=== PATIENT | male | born 2000 | race Caucasian/White ===

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

== ENCOUNTER 2018-02-09 15:42 | Emergency (ER) | payer BC, OTHER ==
[2018-02-09] MEDS ORDERED: Sodium Chloride 0.9% 1,000 ML IV ONE (15:48)
[2018-02-09] MEDS ORDERED: Ondansetron 4 MG/2 ML SDV IVPUSH ONE (15:48)
--- NOTE | 2018-02-09 16:03 | EDM.PDOC ---
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 Review of systems: As per history of present illness and below otherwise all systems reviewed and negative. Past medical history: As per history of present illness and as reviewed below otherwise noncontributory. Surgical history: As per history of present illness and as reviewed below otherwise noncontributory. Social history: No reported history of drug or alcohol abuse. Family history: As per history of present illness and as reviewed below otherwise noncontributory. Physical exam: HEENT: Atraumatic, normocephalic, pupils reactive, negative for conjunctival pallor or scleral icterus, mucous membranes dry, throat clear, neck supple, nontender, trachea midline. Lungs: Clear to auscultation, breath sounds equal bilaterally, chest nontender. Heart: S1S2, regular, negative for clicks, rubs, or JVD. Abdomen: Soft, nondistended, nontender. Negative for masses or hepatosplenomegaly. Negative for costovertebral tenderness. Pelvis: Stable nontender. Genitourinary: Deferred. Rectal: Deferred. Extremities: Atraumatic, negative for cords or calf pain. Neurovascular unremarkable. Neuro: Awake, alert, oriented. Cranial nerves II through XII unremarkable. Cerebellum unremarkable. Motor and sensory unremarkable throughout. Exam nonfocal. Diagnostics: CBC CMP amylase lipase UA EKG chest x-ray ABG Therapeutics: Saline 1 L bolus Zofran 4 mg IV Impression: Were 1 vomiting #2 diabetes #3 history of pancreatitis Definitive disposition and diagnosis as appropriate pending reevaluation and review of above. Abdominal Pain Score (Numeric/FACES): 6 - Related Data Allergies Allergy/AdvReac Type Severity Reaction Status Date / Time azithromycin [From Zithromax] Allergy Hives Verified 02/09/18 16:10 Home Meds: Home Meds Insulin Aspart [NovoLOG] unit SQ ASDIRECTED 09/28/17 [History] Insulin Detemir [Levemir] 50 unit SQ DAILY 09/28/17 [History] Past Medical History Endocrine/Metabolic History: Reports: Diabetes, Type I Social & Family History - Family History Cardiac: Reports: CAD, [place] : Reports: Other (See Below) Other Family History: kidney disease - Tobacco Use Smoking Status *Q: Light Tobacco Smoker Years of Tobacco use: 1 Packs/Tins Daily: 0 - Caffeine Use Caffeine Use: Reports: Soda, Tea - Recreational Drug Use Recreational Drug Use: No ED ROS GENERAL - Review of Systems Review Of Systems: ROS reveals no pertinent complaints other than HPI. ED EXAM GENERAL NO PERIP PULSE - Physical Exam Exam: See Below (dictation) Course - Vital Signs Last Recorded V/S: Last Vital Signs Temp 36.7 C 02/09/18 15:54 Pulse 105 H 02/09/18 15:54 Resp 18 02/09/18 15:54 BP 123/78 02/09/18 15:54 Pulse Ox 97 02/09/18 15:54 - Orders/Labs/Meds Orders: Active Orders 24 hr Category Date Time Status EKG 12 Lead [EKG Documentation Completion] [RC] STAT Care 02/09/18 16:01 Active Chest 1V Frontal [CR] Stat Exams 02/09/18 16:01 Taken UA W/MICROSCOPIC [URIN] Stat Lab 02/09/18 16:43 Ordered Labs: Laboratory Tests 02/09/18 02/09/18 02/09/18 Range/Units 16:05 16:05 16:20 WBC 11.95 H (4.0-11.0) K/uL RBC 4.95 (4.50-5.90) M/uL Hgb 15.4 (13.0-17.0) g/dL Hct 43.5 (38.0-50.0) % MCV 87.9 (80.0-98.0) fL MCH 31.1 (27.0-32.0) pg MCHC 35.4 (31.0-37.0) g/dL RDW Std Deviation 40.8 (28.0-62.0) fl RDW Coeff of Adalberto 13 (11.0-15.0) % Plt Count 365 (150-400) K/uL MPV 9.30 (7.40-12.00) fL Neut % (Auto) 84.5 H (48.0-80.0) % Lymph % (Auto) 8.5 L (16.0-40.0) % [place] % (Auto) 6.1 (0.0-15.0) % Eos % (Auto) 0.8 (0.0-7.0) % Baso % (Auto) 0.1 (0.0-1.5) % Neut # (Auto) 10.1 H (1.4-5.7) K/uL Lymph # (Auto) 1.0 (0.6-2.4) K/uL [place] # (Auto) 0.7 (0.0-0.8) K/uL Eos # (Auto) 0.1 (0.0-0.7) K/uL Baso # (Auto) 0.0 (0.0-0.1) K/uL Nucleated RBC % 0.0 /100WBC Nucleated RBCs # 0 K/uL ABG pH 7.420 (7.35-7.45) ABG pCO2 40 (35-45) mmHG ABG pO2 73 L (75-100) mmHG ABG HCO3 26 (22-26) mEq/L ABG Total CO2 23.1 ABG Base Excess 1.4 (-2.0-2.0) Sodium 140 (136-148) mmol/L Potassium 3.2 L (3.5-5.1) mmol/L Chloride 102 (98-107) mmol/L Carbon Dioxide 27.8 (21.0-32.0) mmol/L BUN 14 (7.0-18.0) mg/dL Creatinine 0.7 L (0.8-1.3) mg/dL Est Cr Clr Drug Dosing 162.86 mL/min Estimated GFR (MDRD) > 60.0 ml/min Glucose 57 L (74-106) mg/dL POC Glucose (60-110) mg/dL Calcium 9.6 (8.5-10.1) mg/dL Total Bilirubin 0.5 (0.2-1.0) mg/dL AST 42 H (15-37) IU/L ALT 47 (14-63) IU/L Alkaline Phosphatase 81 (46-116) U/L Total Protein 7.6 (6.4-8.2) g/dL Albumin 4.1 (3.4-5.0) g/dL Globulin 3.5 (2.0-3.5) g/dL Albumin/Globulin Ratio 1.2 L (1.3-2.8) Amylase 52 (25-115) U/L Lipase 66 L (73-393) U/L 02/09/18 Range/Units 17:01 WBC (4.0-11.0) K/uL RBC (4.50-5.90) M/uL Hgb (13.0-17.0) g/dL Hct (38.0-50.0) % MCV (80.0-98.0) fL MCH (27.0-32.0) pg MCHC (31.0-37.0) g/dL RDW Std Deviation (28.0-62.0) fl RDW Coeff of Adalberto (11.0-15.0) % Plt Count (150-400) K/uL MPV (7.40-12.00) fL Neut % (Auto) (48.0-80.0) % Lymph % (Auto) (16.0-40.0) % [place] % (Auto) (0.0-15.0) % Eos % (Auto) (0.0-7.0) % Baso % (Auto) (0.0-1.5) % Neut # (Auto) (1.4-5.7) K/uL Lymph # (Auto) (0.6-2.4) K/uL [place] # (Auto) (0.0-0.8) K/uL Eos # (Auto) (0.0-0.7) K/uL Baso # (Auto) (0.0-0.1) K/uL Nucleated RBC % /100WBC Nucleated RBCs # K/uL ABG pH (7.35-7.45) ABG pCO2 (35-45) mmHG ABG pO2 (75-100) mmHG ABG HCO3 (22-26) mEq/L ABG Total CO2 ABG Base Excess (-2.0-2.0) Sodium (136-148) mmol/L Potassium (3.5-5.1) mmol/L Chloride (98-107) mmol/L Carbon Dioxide (21.0-32.0) mmol/L BUN (7.0-18.0) mg/dL Creatinine (0.8-1.3) mg/dL Est Cr Clr Drug Dosing mL/min Estimated GFR (MDRD) ml/min Glucose (74-106) mg/dL POC Glucose 42 L (60-110) mg/dL Calcium (8.5-10.1) mg/dL Total Bilirubin (0.2-1.0) mg/dL AST (15-37) IU/L ALT (14-63) IU/L Alkaline Phosphatase (46-116) U/L Total Protein (6.4-8.2) g/dL Albumin (3.4-5.0) g/dL Globulin (2.0-3.5) g/dL Albumin/Globulin Ratio (1.3-2.8) Amylase (25-115) U/L Lipase (73-393) U/L Meds: Medications Discontinued Medications Generic Name Dose Route Start Last Admin Trade Name Freq PRN Reason Stop Dose Admin Dextrose/Water 25 ml 02/09/18 17:01 02/09/18 17:03 Dextrose 50% In Water IVPUSH 02/09/18 17:02 25 ml ONETIME ONE Administration Dextrose/Water Confirm 02/09/18 17:02 Dextrose 50% In Water Administered 02/09/18 17:03 Dose 50 ml .ROUTE .STK-MED ONE Sodium Chloride 1,000 mls @ 999 mls/hr 02/09/18 15:48 02/09/18 16:13 Normal Saline IV 02/09/18 16:48 999 mls/hr STAT ONE Administration Ondansetron HCl 4 mg 02/09/18 15:48 02/09/18 16:13 Zofran IVPUSH 02/09/18 15:49 4 mg ONETIME ONE Administration Departure - Departure Time of Disposition: 17:14 Disposition: Home, Self-Care 01 Condition: Good Clinical Impression: Vomiting, Dehydration, Hypoglycemia - Discharge Information Referrals: Erma Beaver MD [Primary Care Provider] - Forms: ED Department Discharge Additional Instructions: The following information is given to patients seen in the emergency department who are being discharged to home. This information is to outline your options for follow-up care. We provide all patients seen in our emergency department with a follow-up referral. The need for follow-up, as well as the timing and circumstances, are variable depending upon the specifics of your emergency department visit. If you don't have a primary care physician on staff, we will provide you with a referral. We always advise you to contact your personal physician following an emergency department visit to inform them of the circumstance of the visit and for follow-up with them and/or the need for any referrals to a consulting specialist. The emergency department will also refer you to a specialist when appropriate. This referral assures that you have the opportunity for followup care with a specialist. All of these measure are taken in an effort to provide you with optimal care, which includes your followup. Under all circumstances we always encourage you to contact your private physician who remains a resource for coordinating your care. When calling for followup care, please make the office aware that this follow-up is from your recent emergency room visit. If for any reason you are refused follow-up, please contact the [facility] emergency department at and asked to speak to the emergency department charge nurse. Push fluids and eat regularly Accu-Chek 4 times a day as discussed insulin adjustment as discussed follow-up primary medical doctor 24 hours return as needed as discussed
[2018-02-09 16:25] LABS: CHLORIDE,CL 102 mmol/L (98-107); SODIUM,NA 140 mmol/L (136-148)
[2018-02-09] MEDS ORDERED: 50% Dextrose in Water 50 ML Syringe IVPUSH ONE (17:01)
[2018-02-09] MEDS ORDERED: 50% Dextrose in Water 50 ML Syringe ONE (17:02)
--- NOTE | 2018-02-10 10:39 | CR ---
EXAM DATE: 02/09/18 PATIENT'S AGE: 18 Patient: KIM CHING Facility: [place], [place] Site . Site : 2000 Study: XRay Chest [id number]/[id number] 4:27:42 PM Ordering Physician: Delio Carr Final Report: INDICATION: Vomiting TECHNIQUE: Chest 1 view. COMPARISON: None FINDINGS: Cardiovascular and mediastinum: Heart size and vasculature are normal in caliber and appearance. Mediastinum is within normal limits. Lungs and pleural space: Lungs are clear. No sign of infiltrate or mass. No sign of pleural effusion. No pneumothorax. Bones and soft tissues: No significant findings. IMPRESSION: Unremarkable chest. Dictated by: Brady Prater MD @ 02/09/2018 16:37:51 (Electronic Signature) Report Signed by Proxy. [facility]
== END 2018-02-09 18:56 | disposition home or self-care (01) ==
LOC: MW.ED 15:42
DX: E10.649 Type 1 diabetes mellitus with hypoglycemia without coma (principal); E86.0 Dehydration; Z88.1 Allergy status to other antibiotic agents
CPT/HCPCS: 36600; 71045; 80053; 81001; 82150; 82803; 82962; 83690; 85025; 96361; 96374; 96375; 99283; J2405; J7040; J7060